=== PATIENT | female | born 1990 | race Caucasian/White ===

== ENCOUNTER 2016-11-13 01:08 | Emergency (ER) | payer OTHER ==
--- NOTE | ~2016-11-13 | ER ---
PATIENT'S NAME: NOAM WATTS [facility] AGE: 26 Y [address] ROOM: [place] [address] LOCATION: [facility] ADMIT DATE: 11/13/2016 ER/Outpatient Report DISCHARGE DATE: FAMILY PHYSICIAN: PHYSICIAN, NO ATTENDING PHYSICIAN: Masoud Blank CHIEF COMPLAINT: Abdominal pain and vaginal bleeding. HISTORY OF PRESENT ILLNESS: Ms. Watts presents for abdominal pain. This has been off and on for the last week. She notes that she has been having some spotting as well. She is approximately 6 weeks based on LMP. She is G5, P4. She has been following with her primary care obstetrical provider Dr. Pratt for this issue. The pain came back this evening and is on the left side where it has been before. It is more intense than usual and has not responded to Tylenol. It does not really radiate anywhere, but she does feel in her back. No other acute issues at this time. PAST MEDICAL HISTORY: Documented on the record and reviewed by me. SOCIAL HISTORY: Documented on the record and reviewed by me. MEDICATIONS: Documented on the record and reviewed by me. ALLERGIES: DOCUMENTED ON THE RECORD AND REVIEWED BY ME. REVIEW OF SYSTEMS: All systems reviewed and negative except as noted in the HPI. PHYSICAL EXAMINATION: VITAL SIGNS: Blood pressure 157/94, pulse 93, respiratory rate 16, temp 99.0, and SpO2 is 99% on room air. Pain is 10/10. GENERAL: Age appropriate female, in no obvious pain or distress. Otherwise, unremarkable exam. NEUROLOGIC: Awake and alert. GCS 15. No focal deficits. No asymmetry. HEENT: Normocephalic, atraumatic. Eyes are PERRLA. Oropharynx is clear. NECK: Supple. Trachea is midline. CHEST/HEART: Regular rate and rhythm with no murmurs. LUNGS: Clear to auscultation bilateral. No rhonchi, wheezes, or rales. ABDOMEN: Soft, nontender, and nondistended. No rebound, guarding, or masses. PATIENT'S NAME: NOAM WATTS [facility] AGE: 26 Y [address] ROOM: [place] [address] LOCATION: [facility] ADMIT DATE: 11/13/2016 ER/Outpatient Report DISCHARGE DATE: FAMILY PHYSICIAN: PHYSICIAN, NO ATTENDING PHYSICIAN: Masoud Blank BACK: Normal to inspection and palpation. No CVA tenderness. EXTREMITIES: Warm and well perfused. No deformities or edema. No erythema. SKIN: Clean, dry, and intact. No obvious rashes. : Deferred. LABS AND X-RAYS: Transvaginal ultrasound, with nonspecific material in the uterine cavity with fluid in the left adnexum. CBC: White count is 8.3, hemoglobin 13.1, and platelets 229. INR is less than 1. CMS without appreciable abnormality. Serum hCG is 2484, up from 1685, 38 hours previously. Blood type is A negative. Lactate is 1.2. IMPRESSION: Threatened miscarriage versus ectopic . EMERGENCY DEPARTMENT COURSE: The patient was seen and evaluated as above. She has alread had Rhogam this week. Based on presentation, pelvic exam was deferred. Multiple ultrasounds have not identified any location. HCG is above discriminatory threshold. Discussed case with Dr. López, LAPPING MACHINE OPERATOR provider for Dr. Pratt. Also, discussed with Dr. Pratt. The patient's pain was controlled with morphine and Zofran. She was feeling much better. At this time, I do not think the patient has another cause of abdominal pain such as diverticulitis or other cause warranting CT scan imaging. The patient's vital signs remained stable. She will see Dr. Pratt in the clinic later this morning as previously scheduled. All questions were answered. The patient was discharged in good condition with immediate return instruction should anything change, worsen, or she meet return criteria for bleeding in the setting of . All questions were answered and the patient was discharged. MD TAMERA WRIGHT/isabelle /[id number] d: 11/13/16 0426 t: 11/17/16 1238, OUTPATIENT REPORT
[~2016-11-13 01:08] MED LIST: ALBUTEROL2.5 MG/0.5 INH; LORADAMED10 MG PO; MOTRIN800 MG PO; PERCOCET 5-3251 EACH PO; ROBITUSSIN DM120 ML PO; SURFAK240 MG PO; prenatal vitamins PO
[2016-11-13 01:56] LABS: BASOPHIL % 0.4 %; EOSINOPHIL # 0.2 K/uL (0.0-0.5); EOSINOPHIL % 1.8 %; HEMATOCRIT 39.9 % (33.0-46.0); HEMOGLOBIN 13.1 g/dL (11.0-15.0); IMMATURE GRANULOCYTE % 0.4 %; LYMPHOCYTE # 2.4 K/uL (0.8-4.0); LYMPHOCYTE % 28.6 %; MCH 28.8 pg (27.0-34.0); MCHC 32.8 gm/dL (32.0-36.5); MCV 87.7 fl (83.0-98.0); MONOCYTE # 0.6 K/uL (0.0-1.0); MONOCYTE % 6.6 %; MPV 8.7 fl (9.4-12.4); NEUTROPHIL # (ANC) 5.2 K/uL (1.8-7.8); NEUTROPHIL % 62.2 %; NRBC % 0 /100WBC (0-0.00); PLATELET COUNT 229 K/uL (150-450); RBC 4.55 M/uL (3.50-5.00); RDW-CV 13.4 % (11.9-14.6); WBC 8.3 K/uL (4.0-11.0)
[2016-11-13 02:05] LABS: INR - (THERAPEUTIC) 0.97 (0.92-1.07); PROTIME 10.2 SECONDS (9.8-11.4); PTT 26 SECONDS (25-32)
[2016-11-13 02:17] LABS: ALBUMIN 3.5 gm/dL (3.5-5.0); ANION GAP 11.9 (10.0-19.0); CALCIUM 8.5 mg/dL (8.5-10.5); CREATININE 0.6 mg/dL (0.5-1.1); POTASSIUM 3.9 mMol/L (3.7-5.1); TOTAL BILIRUBIN 0.7 mg/dL (0.0-1.5)
== END 2016-11-13 03:36 | disposition disaster alternative care site (69) ==
LOC: GMED 01:08
PROVIDERS: Emergency Medicine
DX: O99.89 Other specified diseases and conditions complicating pregnancy, childbirth and the puerperium (principal); R10.9 Unspecified abdominal pain; O26.851 Spotting complicating pregnancy, first trimester; Z3A.01 Less than 8 weeks gestation of pregnancy; Z98.890 Other specified postprocedural states
CPT/HCPCS: J2270; J2405

== ENCOUNTER → 2016-11-14 | Day surgery (SDC) | payer OTHER ==
[~2016-11-14] VITALS: Ht 172.7 cm; Wt 122.0 kg
--- NOTE | ~2016-11-14 | OR ---
PATIENT'S NAME: NOAM WATTS [facility] AGE: 26 Y [address] ROOM: [place] [address] LOCATION: [facility] [place] ADMIT DATE: 11/14/2016 OR/Procedure Report DISCHARGE DATE: FAMILY PHYSICIAN: PHYSICIAN, NO ATTENDING PHYSICIAN: Ara Pratt SURGEON: Ara Pratt MD DATA SYSTEMS ANALYST: None. DATE OF PROCEDURE: 11/14/2016 PREOPERATIVE DIAGNOSIS: Miscarriage versus ectopic . POSTOPERATIVE DIAGNOSIS: Left ectopic . PROCEDURE: 1. Uterine curettage with frozen section. 2. Diagnostic laparoscopy. 3. Left salpingectomy. ANESTHESIA: General endotracheal. ESTIMATED BLOOD LOSS: 500 mL. COMPLICATIONS: None. DESCRIPTION OF PROCEDURE: The patient is taken to the operating room and verbal time-out was undertaken. Her legs were placed in candy-cane stirrups and she was prepped and draped and her bladder was drained. A weighted speculum was placed and the patient was tipped in Trendelenburg. The uterine curettage was performed after I dilated the cervix sequentially. A small amount of blood and clot was removed from the uterus and there really did not look like any tissue. I sent it for frozen section and there were no chorionic villi noted. Therefore, decision was made to do laparoscopy as tubal is suspected. The patient is setup with Yellofin's stirrups and repositioned for laparoscopy. Another verbal time-out was undertaken. A subumbilical incision was made with a knife and a Veress needle was entered and inflated to 2.0 L of CO2 gas. The Veress needle was removed and an 11-mm Trocar was entered through this site. The laparoscope and attached camera confirmed peritoneal placement. The patient was tipped in Trendelenburg. A suprapubic incision is made and a blunt probe was used. The right tube and ovary looks normal, the uterus looks normal, the left ovary looks normal, and the left tube showed DICTATION ENDS HERE. PATIENT'S NAME: NOAM WATTS [facility] AGE: 26 Y [address] ROOM: [place] [address] LOCATION: [facility] [place] ADMIT DATE: 11/14/2016 OR/Procedure Report DISCHARGE DATE: FAMILY PHYSICIAN: PHYSICIAN, NO ATTENDING PHYSICIAN: Ara Pratt MD Leonardo LIZ /[id number] d: 11/15/16 0429 t: 11/20/16 1855, OPERATIVE SUMMARY
--- NOTE | ~2016-11-14 | OR ---
PATIENT'S NAME: NOAM WATTS [facility] AGE: 26 Y [address] ROOM: [place] [address] LOCATION: [facility] [place] ADMIT DATE: 11/14/2016 OR/Procedure Report DISCHARGE DATE: FAMILY PHYSICIAN: PHYSICIAN, RAVINDRA ATTENDING PHYSICIAN: Ara Pratt SURGEON: Ara Pratt MD PERMACULTURE CONTRACTOR: DATE OF PROCEDURE: 11/14/2016 ADDENDUM: On the left tube, it looks like more than half of the tube is involved with the ectopic . There was blood in the pelvis and the posterior cul-de-sac and the anterior cul-de-sac as well. The decision was made to do a salpingectomy on the left side. I placed another trocar to the left inferior epigastric vessels under direct visualization. Using the grasper, the tube was grasped and I removed the tube with the LigaSure. The tube was then placed in an EndoCatch and removed from the abdomen. The site looked to be dry. Using suction irrigation, the blood was removed from the pelvis. The scope was removed. The gas was desufflated and the incisions were closed with 4-0 Dexon. The patient tolerated the procedure well and went to recovery in stable condition. ARA PRATT MD KHP/modl /[id number] d: 11/15/16314 t: 11/20/16 1858, OPERATIVE SUMMARY
--- NOTE | ~2016-11-14 | HP ---
PATIENT'S NAME: NOAM WATTS [facility] AGE: 26 Y [address] ROOM: [place] [address] LOCATION: [facility] [place] ADMIT DATE: 11/14/2016 History & Physical DISCHARGE DATE: FAMILY PHYSICIAN: PHYSICIAN, NO ATTENDING PHYSICIAN: Ara Pratt CORRECTED COPY / Acct no / 7-17-17 / kld DATE OF SERVICE: HISTORY OF PRESENT ILLNESS: This is a 26-year-old 5, para 4-0-0-4. She has had 4 prior sections. This is a new . She had an hCG of 1000 six days ago. She had bleeding and received RhoGAM at [facility]. I saw her on Wednesday and did an ultrasound. The hCG had only risen to 1500 then. The hCG then went up to 2400 and today is a 2600. We talked that this is far from normal for her following this for a week. She continues to have bleeding. Her ultrasound is abnormal. It shows a fluid sac within the uterus that looks more like a blood collection and a blood clot collection. She does have some free fluid in the pelvis, but no obvious adnexal mass. I have been talking with her about possible diagnoses of miscarriage versus ectopic . It may be impossible for us to differentiate without doing surgery. I have talked to the patient about methotrexate in the office versus surgery. She wants to continue , so is choosing surgery for that reason. PAST MEDICAL HISTORY: Allergies: None known. CURRENT MEDICATIONS: vitamins. LABS: She is Rh negative and received RhoGAM at [facility] on Wednesday. OPERATIONS: Four low-transverse sections. Last one was 10 months ago. PHYSICAL EXAMINATION: ABDOMEN: Soft and nontender. LUNGS: Clear. HEART: Regular rate and rhythm. LABORATORY DATA: Ultrasound findings as above. IMPRESSION: Miscarriage versus ectopic . PATIENT'S NAME: NOAM WATTS [facility] AGE: 26 Y [address] ROOM: [place] [address] LOCATION: [facility] [place] ADMIT DATE: 11/14/2016 History & Physical DISCHARGE DATE: FAMILY PHYSICIAN: PHYSICIAN, NO ATTENDING PHYSICIAN: Ara Pratt PLAN: We will proceed with suction D and C with frozen sections and possible laparoscopy with possible linear salpingostomy or possible salpingectomy. She also understands the possibility of a laparotomy. The alternative is methotrexate, which she declines, as she wants to continue breast-feeding. The patient is consented for the above procedure. MD JACQUES LIZ/isabelle /[id number] CORRECTED COPY / Acct no / 7-17- / kld D: [id number] T: [id number] HISTORY & PHYSICAL
== END | disposition disaster alternative care site (69) ==
LOC: GSDC 05:55
PROC: 0UDB7ZX Extraction of Endometrium, Via Natural or Artificial Opening, Diagnostic (ICD-10-PCS; principal; 2016-11-14)
PROC: 10T24ZZ Resection of Products of Conception, Ectopic, Percutaneous Endoscopic Approach (ICD-10-PCS; 2016-11-14)
PROC: 0UT64ZZ Resection of Left Fallopian Tube, Percutaneous Endoscopic Approach (ICD-10-PCS; 2016-11-14)
DX: O00.10 Tubal pregnancy without intrauterine pregnancy (principal); Z98.890 Other specified postprocedural states
CPT/HCPCS: J1170; J2210; J3010; J7120; J7121